=== PATIENT | male | born 1965 | race Caucasian/White ===

== ENCOUNTER 2018-05-28 09:00 | Emergency (ER) | payer OTHER ==
[2018-05-28] MEDS ORDERED: HYDROmorphone 2 MG/ML SDV IVPUSH ONE (09:07)
--- NOTE | 2018-05-28 09:09 | EDM.PDOC ---
ED HPI GENERAL MEDICAL PROBLEM - General Chief Complaint: Upper Extremity Injury/Pain Stated Complaint: R elbow injury fall Time Seen by Provider: 05/28/18 09:00 Source of Information: Reports: Patient History Limitations: Reports: No Limitations - History of Present Illness INITIAL COMMENTS - FREE TEXT/NARRATIVE: Pt is a 53 year old male, who is here on fishing trip. Pt claims that he was walking on the dock [place] his [place], when he slipped on the ice and fell on the wood deck and landed on his right elbow and his head hit the side bar.There was no loss of consciousness. Pt went and slept, but when he woke up today morning his right elbow was hurting and could not move the forearm, hence, called ambulance . Rates his pain at 10/10 in his elbow, also he c/o right hand finger numbness. No other complaints. Onset Date: 05/27/18 Onset Time: 20:30 Location: Reports: Upper Extremity, Right Quality: Reports: Ache Severity: Severe Improves with: Reports: Immobilization Worsens with: Reports: None Associated Symptoms: Denies: Confusion, Chest Pain, Cough, Diaphoresis, Fever/ Chills, Headaches, Nausea/Vomiting, Rash, Seizure, Shortness of Breath, Syncope , Weakness - Related Data Allergies Allergy/AdvReac Type Severity Reaction Status Date / Time No Known Allergies Allergy Verified 05/28/18 09:05 Home Meds: Home Meds Aspirin [Patti Chewable] 81 mg PO DAILY 05/28/18 [History] diphenhydrAMINE HCl [Benadryl] 25 mg PO QPM 05/28/18 [History] Review of Systems - Review of Systems Review Of Systems: See Below Constitutional: Denies: Chills, Fever Eyes: Denies: Blurred Vision, Vision Change Ears: Denies: Dizziness, Pain Nose: Denies: Clots, Congestion Mouth/Throat: Denies: Pain, Throat Swelling Respiratory: Denies: Shortness of Breath, Cough, Sputum Cardiovascular: Denies: Chest Pain GI/Abdominal: Denies: Nausea, Vomiting Musculoskeletal: Reports: Joint Pain, Joint Swelling, Muscle Pain Skin: Denies: Bruising, Pruritis, Rash Neurological: Reports: Tingling. Denies: Confusion, Dizziness, Headache, Numbness, Seizure, Syncope ED EXAM, GENERAL - Physical Exam Exam: See Below Exam Limited By: No Limitations General Appearance: Alert, WD/WN, Moderate Distress Eye Exam: Bilateral Eye: EOMI, PERRL Ears: Normal External Exam, Normal Canal, Hearing Grossly Normal, Normal TMs Ear Exam: Bilateral Ear: Auricle Normal, Canal Normal, TM normal Nose: Normal Inspection, Normal Mucosa, No Blood Throat/Mouth: Normal Inspection, Normal Lips, Normal Teeth, Normal Gums, Normal Oropharynx, Normal Voice, No Airway Compromise Head: Atraumatic, Normocephalic, Other (mild tenderness over the occcipital area. no swelling noted.). No: Facial Swelling, Facial Tenderness, Sinus Tenderness Neck: Normal Inspection, Supple, Non-Tender, Full Range of Motion Respiratory/Chest: No Respiratory Distress, Lungs Clear, Normal Breath Sounds, No Accessory Muscle Use, Chest Non-Tender Cardiovascular: Normal Peripheral Pulses, Regular Rate, Rhythm, No Edema, No Gallop, No JVD, No Murmur, No Rub Back Exam: Normal Inspection, Full Range of Motion, NT Extremities: Other (Left upper extremity: There is swelling noted over the radial aspect of the elbow. There is no skin bruising noted.The forearm in in mid extension.Very tender aound the elbow joint. Cannot flex the forearm, absent pronation and supination movement. ) Neurological: Alert, Oriented, CN II-XII Intact, Normal Cognition, Normal Gait, Normal Reflexes, No Motor/Sensory Deficits Skin Exam: Warm, Intact Course - Vital Signs Text/Narrative:: Xray shows dislocation of the radial head of the right elbow. Shoulder X-ray appears normal. As the dislocation is about 12 hrs old, I did contact Patrick Guzman and discuss patient with , the orthopedist cable installation manager. He did recommend Joint reduction under sedation. I did discuss recommendations with patient. patient agreed to go ahead with reduction. Consent for conscious sedation obtained. Pt was placed on cardiac monitoring and oxygen. HE did receive total of versed 5mg and 75mcg of fentanyl before he was well sedated. Right elbow was reduced. Post reduction X-ray shows good reduction. His distal neurovascular exam was normal. Long arm splint applied. When patient was awake and alert and out of sedation, was discharged home. Pt advised to keep the splint on for 2 wks. Also Advised ortho followup in 7-10 days. [facility] Mot[facility] 800[facility] 3 times daily as needed for pain. Last Recorded V/S: Last Vital Signs Temp 98.6 F 05/28/18 09:20 Pulse 63 05/28/18 12:51 Resp 16 05/28/18 12:51 BP 151/96 H 05/28/18 12:51 Pulse Ox 100 05/28/18 12:51 - Orders/Labs/Meds Orders: Active Orders 24 hr Category Date Time Status Elbow 2V Rt [CR] Stat Exams 05/28/18 Taken Elbow 2V Rt [CR] Stat Exams 05/28/18 09:03 Taken Shoulder 1V Rt [CR] Stat Exams 05/28/18 09:04 Taken Sodium Chloride 0.9% [Normal Saline] 1,000 ml Med 05/28/18 10:35 Active IV ASDIRECTED Medication Orders Sodium Chloride (Normal Saline) 1,000 mls @ 125 mls/hr IV ASDIRECTED SUAD Last Admin: 05/28/18 10:35 Dose: 125 mls/hr Meds: Medications Generic Name Dose Route Start Last Admin Trade Name Freq PRN Reason Stop Dose Admin Sodium Chloride 1,000 mls @ 125 mls/hr 05/28/18 10:35 05/28/18 10:35 Normal Saline IV 125 mls/hr ASDIRECTED SUAD Administration Discontinued Medications Generic Name Dose Route Start Last Admin Trade Name Freq PRN Reason Stop Dose Admin Fentanyl 25 mcg 05/28/18 12:26 05/28/18 10:44 Sublimaze IVPUSH 05/28/18 12:27 25 mcg ONETIME ONE Administration Hydromorphone HCl 1 mg 05/28/18 09:07 05/28/18 09:21 Dilaudid IVPUSH 05/28/18 09:08 1 mg ONETIME ONE Administration Hydromorphone HCl Confirm 05/28/18 09:25 05/28/18 09:25 Dilaudid Administered 05/28/18 09:26 Not Given Dose 2 mg .ROUTE .STK-MED ONE Lidocaine HCl 20 ml 05/28/18 10:50 05/28/18 10:50 Xylocaine 2% SUBCUT 05/28/18 10:51 8 ml ONETIME ONE Administration Midazolam HCl 2 mg 05/28/18 12:26 05/28/18 10:47 Versed 1 Mg/Ml IVPUSH 05/28/18 12:27 1 mg ONETIME ONE Administration Departure - Departure Time of Disposition: 16:30 Disposition: Home, Self-Care 01 Condition: Good Clinical Impression: Dislocation of right elbow - Discharge Information *PRESCRIPTION DRUG MONITORING PROGRAM REVIEWED*: Not Applicable *COPY OF PRESCRIPTION DRUG MONITORING REPORT IN PATIENT LAUREN: Not Applicable Instructions: Elbow Dislocation, [id number] Referrals: PCP,None [Primary Care Provider] - Forms: ED Department Discharge Additional Instructions: Xray shows dislocation of the radial head of the right elbow. Shoulder X-ray appears normal. As the dislocation is about 12 hrs old, I did contact Patrick Guzman and discuss patient with , the orthopedist cable installation manager. He did recommend Joint reduction under sedation. I did discuss recommendations with patient. patient agreed to go ahead with reduction. Consent for conscious sedation obtained. Pt was placed on cardiac monitoring and oxygen. HE did receive total of versed 5mg and 75mcg of fentanyl before he was well sedated. Right elbow was reduced. Post reduction X-ray shows good reduction. His distal neurovascular exam was normal. Long arm splint applied. When patient was awake and alert and out of sedation, was discharged home. Pt advised to keep the splint on for 2 wks. Also Advised ortho followup in 7-10 days. [facility] Motrin 800mg 3 times daily as needed for pain. - Problem List & Annotations (1) Dislocation of right elbow SNOMED Code(s): 326431179 Code(s): S53.104A - UNSP DISLOCATION OF RIGHT ULNOHUMERAL JOINT, INIT ENCNTR Status: Acute Current Visit: Yes - Problem List Review Problem List Initiated/Reviewed/Updated: Yes - My Orders Last 24 Hours: My Active Orders 05/28/18 Elbow 2V Rt [CR] Stat 05/28/18 09:03 Elbow 2V Rt [CR] Stat 05/28/18 09:04 Shoulder 1V Rt [CR] Stat 05/28/18 10:35 Sodium Chloride 0.9% [Normal Saline] 1,000 ml IV ASDIRECTED - Assessment/Plan Last 24 Hours: My Active Orders 05/28/18 Elbow 2V Rt [CR] Stat 05/28/18 09:03 Elbow 2V Rt [CR] Stat 05/28/18 09:04 Shoulder 1V Rt [CR] Stat 05/28/18 10:35 Sodium Chloride 0.9% [Normal Saline] 1,000 ml IV ASDIRECTED Assessment:: right elbow dislocation Plan: Xray shows dislocation of the radial head of the right elbow. Shoulder X-ray appears normal. As the dislocation is about 12 hrs old, I did contact Patrick Guzman and discuss patient with , the orthopedist cable installation manager. He did recommend Joint reduction under sedation. I did discuss recommendations with patient. patient agreed to go ahead with reduction. Consent for conscious sedation obtained. Pt was placed on cardiac monitoring and oxygen. HE did receive total of versed 5mg and 75mcg of fentanyl before he was well sedated. Right elbow was reduced. Post reduction X-ray shows good reduction. His distal neurovascular exam was normal. Long arm splint applied. When patient was awake and alert and out of sedation, was discharged home. Pt advised to keep the splint on for 2 wks. Also Advised ortho followup in 7-10 days. [facility] Motrin 800mg 3 times daily as needed for pain.
[2018-05-28] MEDS ORDERED: HYDROmorphone 2 MG/ML Syringe ONE (09:25)
[2018-05-28] MEDS ORDERED: Sodium Chloride 0.9% 1,000 ML IV SCH (10:35)
[2018-05-28] MEDS: Midazolam 1 MG/ML 2 ML SDV IVPUSH ONE ×3 (10:35→10:47)
[2018-05-28] MEDS: fentaNYL 250 MCG/5 ML SDV IVPUSH ONE ×3 (10:36→10:44)
[2018-05-28] MEDS ORDERED: Lidocaine 2% 20 ML MDV SUBCUT ONE (10:50)
--- NOTE | 2018-05-29 10:15 | CR ---
DATE OF SERVICE: 05/28/18 CLINICAL DATA: Fall-Elbow deformity RIGHT ELBOW: There is dislocation of the elbow joint with posterior dislocation of the radius and ulna with respect to the distal humerus. No fractures. [id number] [facility]
--- NOTE | 2018-05-29 10:18 | CR ---
DATE OF SERVICE: 05/28/18 CLINICAL DATA: POST REDUCTION RIGHT ELBOW: Comparison is made to a prior exam from earlier in the day. A single oblique view was performed. The previous elbow dislocation does appear to be reduced, however AP and lateral views are necessary. [id number] [facility]
--- NOTE | 2018-05-29 10:20 | CR ---
DATE OF SERVICE: 05/28/18 CLINICAL DATA: Fall-shoulder pain RIGHT SHOULDER: A single view was performed. There are mild osteoarthritic changes of the AC joint. No definite acute abnormalities. [id number] [facility]
== END 2018-05-28 16:20 | disposition home or self-care (01) ==
LOC: LB.ED 09:00
DX: S53.024A Posterior dislocation of right radial head, initial encounter (principal); Z79.82 Long term (current) use of aspirin; W00.0XXA Fall on same level due to ice and snow, initial encounter
CPT/HCPCS: 24600; 73020-RT; 73070-RT; 96361; 96374; 99152; 99153; 99283-25; A0425; A0429; J1170; J2001; J2250; J3010; J7030